=== PATIENT | female | born 1935 | race Caucasian/White ===

== ENCOUNTER 2016-08-22 07:44 | Outpatient (CLI) | payer OTHER ==
[2016-08-22 08:50] LABS: BASOPHILS % 0.5 (0.0-1.5); EOSINOPHILS % 2.6 % (0.0-6.8); LYMPHOCYTES # 1.6 # k/uL (0.6-4.0); MEAN CORPUSCULAR HEMOGLOBIN 30.3 pg (28.0-34.0); MONOCYTES # 0.3 # k/uL (0.0-0.9); MONOCYTES % 3.6 % (0.0-11.0); NEUTROPHILS # 5.8 # k/uL (1.4-7.7)
== END 2016-08-22 07:45 ==
LOC: LAB 07:44
PROVIDERS: ATTEND Internal Medicine Nephrology
DX: E11.65 Type 2 diabetes mellitus with hyperglycemia (principal); I10 Essential (primary) hypertension; R60.9 Edema, unspecified; Z68.37 Body mass index [BMI] 37.0-37.9, adult
CPT/HCPCS: 36415; 80069; 83036; 85025

== ENCOUNTER 2016-11-22 14:58 | Outpatient (CLI) | payer OTHER ==
[2016-11-22 15:17] LABS: BASOPHILS % 0.6 (0.0-1.5); EOSINOPHILS % 2.5 % (0.0-6.8); MEAN CORPUSCULAR HEMOGLOBIN 29.9 pg (28.0-34.0); MEAN CORPUSCULAR VOLUME 90.8 fl (80.0-100.0); MONOCYTES % 3.7 % (0.0-11.0); NEUTROPHILS # 6.2 # k/uL (1.4-7.7)
== END 2016-11-22 15:00 ==
LOC: LAB 14:58
PROVIDERS: ATTEND Internal Medicine Nephrology
DX: E11.65 Type 2 diabetes mellitus with hyperglycemia (principal); I10 Essential (primary) hypertension; R60.9 Edema, unspecified; Z68.37 Body mass index [BMI] 37.0-37.9, adult
CPT/HCPCS: 36415; 80069; 83036; 85025

== ENCOUNTER 2017-02-17 07:54 | Outpatient (CLI) | payer OTHER | END 2017-02-17 08:00 | LOC: LAB 07:54 | PROVIDERS: ATTEND Internal Medicine Nephrology | DX: E11.65 Type 2 diabetes mellitus with hyperglycemia (principal); I10 Essential (primary) hypertension; R60.9 Edema, unspecified | CPT/HCPCS: 36415; 83036 ==

== ENCOUNTER 2017-06-19 08:18 | Outpatient (CLI) | payer OTHER ==
[2017-06-19 08:40] LABS: BASOPHILS % 0.7 (0.0-1.5); EOSINOPHILS % 4.6 % (0.0-6.8); MEAN CORPUSCULAR HEMOGLOBIN 30.3 pg (28.0-34.0); MEAN CORPUSCULAR VOLUME 87.3 fl (80.0-100.0); MONOCYTES % 3.2 % (0.0-11.0); NEUTROPHILS # 6.4 # k/uL (1.4-7.7)
== END 2017-06-19 08:20 ==
LOC: LAB 08:18
PROVIDERS: ATTEND Internal Medicine Nephrology
DX: H60.92 Unspecified otitis externa, left ear (principal); I10 Essential (primary) hypertension; E11.9 Type 2 diabetes mellitus without complications; R60.9 Edema, unspecified; Z68.36 Body mass index [BMI] 36.0-36.9, adult
CPT/HCPCS: 36415; 80069; 83036; 85025

== ENCOUNTER 2017-09-05 07:59 | Outpatient (CLI) | payer OTHER ==
[2017-09-05 08:51] LABS: BASOPHILS % 0.9 (0.0-1.5); MEAN CORPUSCULAR HEMOGLOBIN 29.9 pg (28.0-34.0); MEAN CORPUSCULAR VOLUME 90.2 fl (80.0-100.0); MONOCYTES % 3.1 % (0.0-11.0); NEUTROPHILS # 6.8 # k/uL (1.4-7.7)
== END 2017-09-05 08:10 ==
LOC: LAB 07:59
PROVIDERS: ATTEND Internal Medicine Nephrology
DX: I10 Essential (primary) hypertension (principal); R60.9 Edema, unspecified; E11.65 Type 2 diabetes mellitus with hyperglycemia; Z68.37 Body mass index [BMI] 37.0-37.9, adult
CPT/HCPCS: 36415; 80069; 83036; 85025

== ENCOUNTER → 2017-12-21 | Outpatient (CLI) | payer OTHER ==
[2017-12-21 08:07] LABS: MEAN CORPUSCULAR HEMOGLOBIN 30.1 pg (28.0-34.0); MEAN CORPUSCULAR VOLUME 91.8 fl (80.0-100.0)
[2017-12-21 08:08] LABS: BASOPHILS % 0.8 (0.0-1.5); EOSINOPHILS % 3.4 % (0.0-6.8); MONOCYTES % 2.7 % (0.0-11.0); NEUTROPHILS # 6.8 # k/uL (1.4-7.7)
[2017-12-21 08:53] LABS: eGFR (African) > 60; eGFR (Non-African) > 60
== END ==
LOC: LAB 07:44
PROVIDERS: ATTEND Internal Medicine Nephrology
DX: I10 Essential (primary) hypertension (principal); E11.65 Type 2 diabetes mellitus with hyperglycemia; R60.9 Edema, unspecified; Z68.37 Body mass index [BMI] 37.0-37.9, adult
CPT/HCPCS: 36415; 80053; 80061; 83036; 84443; 85025

== ENCOUNTER 2018-01-17 13:48 | Outpatient (CLI) | payer OTHER ==
--- NOTE | 2018-01-18 14:06 | OP Clinic Progress Note ---
REASON FOR VISIT: This 82-year-old overweight female is seen with a history of renal failure. She has also had a severe hearing loss and a history of cerumen impaction and use of hearing aids. She uses in both ears [id number] hearing aids. She had a slow progressive hearing loss for years but progressively severe over the last several months. I cleaned a small amount of cerumen from the right ear that is not obstructive. In the left ear, there is both a significant amount of moist white cerumen that is packed down filling at least three-fourths of the ear canal all the way down the eardrum. Under the microscope, I debrided and cleaned this and rinsing with alcohol and suctioning using angle picks. Both eardrums were otherwise intact. She tolerated the 91% alcohol very well. After cleaning the ears, using tuning forks with no hearing aids in, the Lan refers to the left ear. Bone conduction is greater than air conduction in the left ear. The bone conduction on the right mastoid refers to the left ear. The general picture would be a severe bilateral sensorineural hearing loss with some degree of a conductive component of the left ear. This probably represents some degree of otosclerosis with severe sensorineural hearing loss. PLAN: I recommended twice a week rinsing and cleaning the left ear canal with 91% alcohol. I will see her in a month to recheck and make sure this is not reoccurring. She is essentially entirely dependent upon the hearing in the left ear and working extra hard to keep the ear canal clean and healthy is very important in this patient. STONEY
== END 2018-01-17 14:00 ==
LOC: ENT 13:48
PROVIDERS: ATTEND Otolaryngology
DX: H61.23 Impacted cerumen, bilateral (principal); H91.93 Unspecified hearing loss, bilateral
CPT/HCPCS: 69210; G0463

== ENCOUNTER 2018-02-14 14:13 | Outpatient (CLI) | payer OTHER ==
--- NOTE | 2018-02-15 15:30 | OP Clinic Progress Note ---
REASON FOR VISIT: This 81-year-old lady is seen accompanied by her daughter. She uses hearing aids in both ears. On her prior visit, I cleaned a significant amount of cerumen out of both ears. The eardrums are intact. At my suggestion, she has used rubbing alcohol twice a week in both ears. Both eardrums and ear canals are clear. There was a small amount of cerumen which I debrided and cleaned out of both ear canals. There remains significant improvement. PLAN: If the patient and her daughter agree to continue using the alcohol drops in the ears twice a week, they can be rechecked on a p.r.n. basis. STONEY
== END 2018-02-14 14:14 ==
LOC: ENT 14:13
PROVIDERS: ATTEND Otolaryngology
DX: H61.23 Impacted cerumen, bilateral (principal)
CPT/HCPCS: 69210; G0463

== ENCOUNTER 2018-04-02 14:24 | Outpatient (CLI) | payer OTHER ==
[2018-04-02 23:01] LABS: BASO % 0.9 % (0.0-1.5); LYMPH ABS # 2.45 thou/uL (0.60-4.00); MCH. 29.5 pg (28.0-34.0); MCV 91.7 fL (80.0-100.0); MONOCYTE % 4.1 % (0.0-11.0); MONOCYTE ABS # 0.35 thou/uL (0.00-0.90); PLATELET COUNT 338 thou/uL (130-400)
== END 2018-04-02 14:25 ==
LOC: LAB 14:24
PROVIDERS: ATTEND Internal Medicine Nephrology
DX: E11.65 Type 2 diabetes mellitus with hyperglycemia (principal); I10 Essential (primary) hypertension; R60.9 Edema, unspecified; Z68.36 Body mass index [BMI] 36.0-36.9, adult
CPT/HCPCS: 36415; 80069; 83036; 85025

== ENCOUNTER 2018-08-20 14:19 | Outpatient (CLI) | payer OTHER ==
[2018-08-20 14:41] LABS: BASOPHILS % 0.7 (0.0-1.5); EOSINOPHILS % 3.1 % (0.0-6.8); MEAN CORPUSCULAR HEMOGLOBIN 29.7 pg (28.0-34.0); MONOCYTES % 4.6 % (0.0-11.0); NEUTROPHILS # 7.2 # k/uL (1.4-7.7)
== END 2018-08-20 14:20 ==
LOC: LAB 14:19
PROVIDERS: ATTEND Internal Medicine Nephrology
DX: E11.65 Type 2 diabetes mellitus with hyperglycemia (principal); I10 Essential (primary) hypertension
CPT/HCPCS: 36415; 80069; 83036; 85025

== ENCOUNTER 2019-04-05 07:08 | Outpatient (CLI) | payer OTHER ==
[2019-04-18 07:33] LABS: A1C 6.6 % (<5.7); BASOPHILS % 0.5 % (0.0-1.5); HDL 53 mg/dL (>40); NEUTROPHILS # 5.6 # k/uL (1.4-7.7); eGFR (Non-African) 34
== END 2019-04-05 07:15 ==
LOC: LAB 07:08
PROVIDERS: ATTEND Internal Medicine Nephrology
DX: E11.65 Type 2 diabetes mellitus with hyperglycemia (principal); I10 Essential (primary) hypertension; R60.9 Edema, unspecified
CPT/HCPCS: 36415; 80053; 80061; 83036; 84443; 85025